=== PATIENT | male | born 1980 | race Caucasian/White ===

== ENCOUNTER 2020-09-29 17:13 | Emergency (ER) | payer MEDICARE ==
[2020-09-29 19:11] LABS: HEMOGLOBIN 18.9 gm/dl (14.0-17.5); RED BLOOD COUNT 5.7 M/UL (4.20-5.50); WHITE BLOOD COUNT 10.7 K/UL (4.5-11.0)
[2020-09-29 19:22] LABS: BUN/CREATININE RATIO 12 (0-10)
[2020-09-29] MEDS ORDERED: PROTONIX40 MG PO (22:26)
[2020-09-29] MEDS ORDERED: ONDANSETRON ODT4 MG SL (22:26)
[2020-09-29] MEDS ORDERED: MYLANTA MAXIMU355 ML PO (22:26)
== END 2020-09-29 22:50 | disposition home or self-care (01) ==
LOC: ER1 17:13
PROVIDERS: Physician Assistant
DX: K76.0 Fatty (change of) liver, not elsewhere classified (principal); R91.1 Solitary pulmonary nodule; I10 Essential (primary) hypertension; J44.9 Chronic obstructive pulmonary disease, unspecified; F17.200 Nicotine dependence, unspecified, uncomplicated; Z79.82 Long term (current) use of aspirin; Z79.899 Other long term (current) drug therapy
CPT/HCPCS: 80053; 81001; 83690; 85025; 87086; 96374; 96375; 99284; C9113; J1885; J7030

== ENCOUNTER → 2020-10-03 | Outpatient (CLI) | payer MEDICARE ==
[~2020-10-03] MED LIST: MYLANTA MAXIMU355 ML PO; ONDANSETRON ODT4 MG SL; PROTONIX40 MG PO
== END ==
LOC: EXRD 09:24
DX: R10.11 Right upper quadrant pain (principal); K76.0 Fatty (change of) liver, not elsewhere classified
CPT/HCPCS: 76705

== ENCOUNTER 2021-11-24 21:36 | Emergency (ER) | payer MEDICARE ==
[2021-11-24 22:57] LABS: RED BLOOD COUNT 6.67 M/UL (4.20-5.50); WHITE BLOOD COUNT 10.2 K/UL (4.5-11.0)
[2021-11-24 23:00] LABS: HEMOGLOBIN 22.8 gm/dl (14.0-17.5)
[2021-11-24 23:43] LABS: BUN/CREATININE RATIO 11 (0-10)
== END 2021-11-25 08:51 | disposition home or self-care (01) ==
LOC: ER1 21:36
PROVIDERS: Family Medicine
DX: R07.89 Other chest pain (principal); D75.1 Secondary polycythemia; F17.210 Nicotine dependence, cigarettes, uncomplicated
CPT/HCPCS: 71045; 80053; 82550; 82553; 84484; 85025; 85379; 85610; 85730; 93005; 99285; Q9967